=== PATIENT | male | born 1950 | race Caucasian/White ===

== ENCOUNTER 2017-03-20 14:26 | Inpatient (IN) | payer MEDICAID, MEDICARE, OTHER ==
[~2017-03-20] VITALS: Ht 182.9 cm; Wt 111.9 kg
[~2017-03-20 14:26] MED LIST: ASPI-496 PO; FLEC100T PO; HYDR-3138 PO; HYDR25TA6 PO; LISI-468 PO; OMEP-110 PO
[2017-03-20] MEDS ORDERED: SODIUM CHLORIDE FLUSH 10ML SYR IVF ONE (15:30)
[2017-03-20 15:38] LABS: ASPARTATE AMINO TRANSFERASE 18 U/L (15-37); BLOOD UREA NITROGEN 12 mg/dL (7-18)
[2017-03-20 15:44] LABS: IS PT STATUS REG ER OR PRE ER? YES
[2017-03-20 17:20] LABS: IS PT STATUS REG ER OR PRE ER? YES
[2017-03-20] MEDS ORDERED: DOCUSATE 100 MG CAPSULE PO PRN (17:30)
[2017-03-20] MEDS ORDERED: POLYETHYLENE GLYCOL 17 GM PACKET PO PRN (17:30)
[2017-03-20] MEDS ORDERED: ENALAPRILAT 1.25 MG/ML, 2ML IVPush PRN (17:30)
[2017-03-20] MEDS ORDERED: LORazepam 2 MG/ML, 1ML IVPush PRN (17:30)
[2017-03-20] MEDS ORDERED: NITROGLYCERIN 0.4 MG BOTTLE (25 TABS) SL PRN (17:30)
[2017-03-20] MEDS ORDERED: morphine SULFATE 10 MG/ML, 1ML IVPush PRN (17:30)
[2017-03-20] MEDS ORDERED: ONDANSETRON 2MG/ML, 2ML IVPush PRN (17:30)
[2017-03-20] MEDS ORDERED: ACETAMINOPHEN 325 MG TABLET PO PRN (17:30)
[2017-03-20] MEDS ORDERED: LABETALOL 5MG/ML 40ML VIAL IVPush PRN (17:30)
[2017-03-20] MEDS ORDERED: HYDROcodone/APAP 5/325 TABLET PO PRN (17:30)
[2017-03-20 17:35] VITALS: BP 127/81
[2017-03-20] MEDS ORDERED: GABA300C10 PO (17:47)
[2017-03-20] MEDS ORDERED: FLEC150T PO (17:47)
[2017-03-20] MEDS ORDERED: COLC0.6T37 PO (17:47)
[2017-03-20] MEDS ORDERED: FLEC100T PO (17:47)
[2017-03-20] MEDS ORDERED: ALLO300T PO (17:47)
[2017-03-20] MEDS ORDERED: RIVA20TA PO (17:47)
[2017-03-20 18:40] VITALS: BP 133/77
[2017-03-20] MEDS ORDERED: FLECAINIDE 50MG TABLET PO SCH (21:00)
[2017-03-20] MEDS ORDERED: RIVAROXABAN 20 MG TABLET PO SCH (21:30)
[2017-03-21 01:37] VITALS: BP 105/64
[2017-03-21 03:25] LABS: IS PT STATUS REG ER OR PRE ER? NO
[2017-03-21] MEDS ORDERED: RIVAROXABAN 20 MG TABLET PO SCH (06:00)
[2017-03-21 07:49] VITALS: BP 135/86
[2017-03-21] MEDS ORDERED: LISINOPRIL 20 MG TABLET PO SCH (09:00)
[2017-03-21] MEDS ORDERED: FLECAINIDE 100MG TABLET PO SCH (09:00)
[2017-03-21] MEDS ORDERED: HYDROCHLOROTHIAZIDE 25 MG TABLET PO SCH (09:00)
[2017-03-21 10:09] VITALS: BP 124/78
[2017-03-21] MEDS ORDERED: REGADENOSON 0.4 MG/5 ML SYRINGE ONE (13:01)
[2017-03-21 17:03] VITALS: BP 120/78
== END 2017-03-21 17:48 | disposition home or self-care (01) | DRG 313 ==
LOC: ED 15:54 → EDIP 16:27 → 5SO 17:24
PROVIDERS: ADMIT Internal Medicine; ATTEND Internal Medicine
DX: R07.89 Other chest pain (principal); D68.69 Other thrombophilia; F12.90 Cannabis use, unspecified, uncomplicated; I48.0 Paroxysmal atrial fibrillation; E78.5 Hyperlipidemia, unspecified; E66.9 Obesity, unspecified; I11.9 Hypertensive heart disease without heart failure; Z95.0 Presence of cardiac pacemaker; Z90.49 Acquired absence of other specified parts of digestive tract; Z82.49 Family history of ischemic heart disease and other diseases of the circulatory system; Z80.1 Family history of malignant neoplasm of trachea, bronchus and lung; Z91.040 Latex allergy status; Z68.33 Body mass index [BMI] 33.0-33.9, adult
CPT/HCPCS: 36415; 71010; 78452; 80053; 80061; 83735; 83880; 84443; 84484; 85025; 93005; 93017; 93306; 99285; J2785; A9502; C9898

== ENCOUNTER 2017-11-05 10:35 | Emergency (ER) | payer MEDICARE ==
[~2017-11-05] VITALS: Ht 182.9 cm; Wt 104.6 kg
[~2017-11-05 10:35] MED LIST changes: +ALLO300T PO; +COLC0.6T37 PO; +FLEC150T PO; +GABA300C10 PO; -HYDR-3138 PO; +HYDR-3237 PO; +RIVA20TA PO
[2017-11-05] MEDS ORDERED: SILVER NITRATE STICK TP ONE (12:11)
[2017-11-05] MEDS ORDERED: BACITRACIN ZINC OINT 500U/GM, 0.9 GM ONE (12:11)
[2017-11-05 13:03] VITALS: BP 131/72
== END 2017-11-05 13:05 | disposition home or self-care (01) ==
LOC: ED 11:59
DX: R04.0 Epistaxis (principal); I48.91 Unspecified atrial fibrillation; I10 Essential (primary) hypertension; Z79.01 Long term (current) use of anticoagulants
CPT/HCPCS: 30901; 99284

== ENCOUNTER 2017-11-24 12:07 | Emergency (ER) | payer MEDICARE ==
[~2017-11-24] VITALS: Ht 182.9 cm; Wt 106.6 kg
[2017-11-24] MEDS ORDERED: PHENYLEPHRINE NASAL 0.5%, 15ML SPRAY NAS ONE (13:00)
[2017-11-24] MEDS ORDERED: PHENYLEPHRINE NASAL 1%, 15ML SPRAY ONE (13:25)
[2017-11-24] MEDS ORDERED: LIDOCAINE-MPF 2% ,5ML ONE (13:25)
[2017-11-24] MEDS ORDERED: LIDOCAINE 1%, 20ML ONE (13:26)
[2017-11-24] MEDS ORDERED: BACITRACIN ZINC OINT 500U/GM, 0.9 GM ONE (13:26)
[2017-11-24 14:21] VITALS: BP 112/68
== END 2017-11-24 14:23 | disposition home or self-care (01) ==
LOC: ED 14:16
DX: R04.0 Epistaxis (principal); I48.91 Unspecified atrial fibrillation; I10 Essential (primary) hypertension; Z79.01 Long term (current) use of anticoagulants
CPT/HCPCS: 30901; 99284

== ENCOUNTER → 2019-11-27 | Outpatient (CLI) | payer MEDICARE ==
[2019-11-27 14:28] LABS: BASOPHILS # (AUTO) 0.02 x10^3/uL (0-0.1); BASOPHILS % (AUTO) 0 % (0-1); EOSINOPHILS # (AUTO) 0.07 x10^3/uL (0-0.4); EOSINOPHILS % (AUTO) 1 % (1-7); LYMPHOCYTES % (AUTO) 16 % (22-44); MD NO; MEAN CORPUSCULAR HGB CONC 33.9 g/dL (33.2-36.2); MEAN CORPUSCULAR VOLUME 94.5 fL (81-97); MEAN PLATELET VOLUME 8.5 fL (7.4-10.4); MONOCYTES # (AUTO) 0.43 x10^3/uL (0.2-0.8); MONOCYTES % (AUTO) 5 % (2-9); NEUTROPHILS # (AUTO) 6.51 x10^3/uL (1.8-6.8); NEUTROPHILS % (AUTO) 78 % (42-75); PLATELET COUNT 187 x10^3/uL (130-400); RED BLOOD COUNT 5.09 x10^6/uL (4.38-5.82); RED CELL DISTRIBUTION WIDTH 13.8 % (9.4-14.8)
[2019-11-27 14:33] LABS: ALANINE AMINOTRANSFERASE 43 U/L (12-78); ALBUMIN 4.1 g/dL (3.4-5.0); ANION GAP 6 mmol/L (5-15); CALCIUM 8.7 mg/dL (8.5-10.1); CHLORIDE 109 mmol/L (98-107); CREATININE 0.92 mg/dL (0.7-1.3)
[2019-11-27 14:36] LABS: ALKALINE PHOSPHATASE 101 U/L (45-117); BILIRUBIN,TOTAL 0.5 mg/dL (0.2-1.0); TOTAL PROTEIN 7.4 g/dL (6.4-8.2)
[2019-11-27 14:39] LABS: INTERNATIONAL NORMALIZED RATIO 1.1 (0.93-1.1); PROTHROMBIN TIME 11.7 Seconds (9.6-11.5)
== END | disposition home or self-care (01) ==
LOC: STAR 13:21
PROVIDERS: ATTEND Orthopaedic Surgery
DX: Z01.818 Encounter for other preprocedural examination (principal); M16.11 Unilateral primary osteoarthritis, right hip; Z79.899 Other long term (current) drug therapy
CPT/HCPCS: 36415; 80053; 83036; 85025; 85610; 85730; 87081; 87806; 93005; G0475

== ENCOUNTER 2019-12-04 08:10 | Day surgery (SDC) | payer MEDICARE ==
[~2019-12-04] VITALS: Ht 182.9 cm; Wt 108.9 kg
[~2019-12-04 08:10] MED LIST changes: +EPINEPHRINE 1 MG/ML, 1ML ONE; +KETOROLAC 60 MG/2 ML ONE; +ROPIvacaine/PF 0.2%, 20 ML ONE; +SODIUM CHLORIDE 0.9% 50 ML ONE; +VANCOMYCIN 1,000 MG ONE
[2019-12-04] MEDS ORDERED: LACTATED RINGERS 1,000 ML IV SCH (09:27)
[2019-12-04] MEDS ORDERED: GABAPENTIN 300 MG CAPSULE PO ONE (09:30)
[2019-12-04] MEDS ORDERED: ACETAMINOPHEN 500 MG TABLET PO ONE (09:30)
[2019-12-04] MEDS ORDERED: TRANEXAMIC ACID 100 MG/ML, 10ML ONE (10:23)
[2019-12-04] MEDS ORDERED: FENTANYL PF 250 MCG/5ML ONE (10:27)
[2019-12-04] MEDS ORDERED: MIDAZOLAM 1 MG/ML, 2ML ONE (10:29)
[2019-12-04] MEDS ORDERED: ACETAMINOPHEN 650 MG/20.3 ML UDC PO PRN (10:30)
[2019-12-04] MEDS ORDERED: OXYcodone 5 MG/5 ML ORAL.SOL UDC PO PRN (10:30)
[2019-12-04] MEDS ORDERED: POLYETHYLENE GLYCOL 17 GM PACKET PO PRN (10:30)
[2019-12-04] MEDS ORDERED: TRANEXAMIC ACID 1,000 MG in SODIUM CHLORIDE 0.9% 100 ML IVPB ONE (10:30)
[2019-12-04] MEDS ORDERED: DIPHENHYDRAMINE 50 MG/ML, 1ML IVPush PRN (10:30)
[2019-12-04] MEDS ORDERED: PROMETHAZINE 25 MG/ML, 1ML IV PRN (10:30)
[2019-12-04] MEDS ORDERED: ONDANSETRON ODT 8 MG PO PRN (10:30)
[2019-12-04] MEDS ORDERED: HYDROmorphone 1 MG/ML, 1ML INJ IVPush PRN (10:30)
[2019-12-04] MEDS ORDERED: MAGNESIUM HYDROXIDE 8%, 30ML UDC PO PRN (10:30)
[2019-12-04] MEDS ORDERED: SENNA/DOCUSATE TABLET PO PRN (10:30)
[2019-12-04] MEDS ORDERED: PROMETHAZINE 25 MG/ML, 1ML IM PRN (10:30)
[2019-12-04] MEDS ORDERED: DIPHENHYDRAMINE 25 MG CAPSULE PO PRN (10:30)
[2019-12-04] MEDS ORDERED: LORazepam 2 MG/ML, 1ML IVPush PRN (10:30)
[2019-12-04] MEDS ORDERED: FENTANYL PF 100 MCG/2ML IV PRN (10:30)
[2019-12-04] MEDS ORDERED: ONDANSETRON 4 MG TABLET PO PRN (10:30)
[2019-12-04] MEDS ORDERED: ONDANSETRON 2MG/ML, 2ML IVPush PRN (10:30)
[2019-12-04] MEDS ORDERED: SCOPOLAMINE PATCH, 1.5MG PATCH.TD72 TD SCH (10:30)
[2019-12-04] MEDS: ACETAMINOPHEN 325 MG TABLET PO SCH ×4 (10:30→22:14)
[2019-12-04] MEDS ORDERED: hydrALAzine 20 MG/ML, 1ML IV PRN (10:30)
[2019-12-04] MEDS ORDERED: ALUMINUM/MAG/SIMETHICONE 30 ML UDC PO PRN (10:30)
[2019-12-04] MEDS ORDERED: PROMETHAZINE 25 MG SUPP PR PRN (10:30)
[2019-12-04] MEDS ORDERED: ONDANSETRON 2MG/ML, 2ML IV PRN (10:30)
[2019-12-04] MEDS ORDERED: CEFAZOLIN PMX 1GM/50ML 50 ML IVPB SCH (10:30)
[2019-12-04] MEDS ORDERED: LABETALOL 5MG/ML, 20ML IV PRN (10:30)
[2019-12-04] MEDS ORDERED: PSYLLIUM PACKET PO PRN (10:30)
[2019-12-04] MEDS ORDERED: OXYcodone IR 5MG TABLET PO PRN (10:30)
[2019-12-04] MEDS ORDERED: LIDOCAINE 2% 100MG/5ML SYRINGE ONE (10:40)
[2019-12-04] MEDS ORDERED: GLYCOPYRROLATE 0.2MG/1ML, 5ML ONE (11:30)
[2019-12-04] MEDS ORDERED: NEOSTIGMINE 1 MG/ML, 10ML ONE (11:30)
[2019-12-04] MEDS ORDERED: ROCURONIUM 10MG/ML,5ML ONE (11:30)
[2019-12-04] MEDS ORDERED: DEXAMETHASONE 4 MG/ML, 1ML ONE (11:30)
[2019-12-04] MEDS ORDERED: PROPOFOL 10 MG/ML, 20ML ONE (11:30)
[2019-12-04] MEDS ORDERED: ONDANSETRON 2MG/ML, 2ML ONE (11:30)
[2019-12-04] MEDS ORDERED: SUCCINYLCHOLINE 20 MG/ML, 10ML ONE (11:30)
[2019-12-04] MEDS ORDERED: CEFAZOLIN 1,000 MG ONE (11:30)
[2019-12-04] MEDS ORDERED: FENTANYL PF 100 MCG/2ML ONE (11:31)
[2019-12-04] MEDS ORDERED: HYDROmorphone 1 MG/ML, 1ML INJ ONE ×2 (12:28→12:59)
[2019-12-04] MEDS ORDERED: OXYcodone 5 MG/5 ML ORAL.SOL UDC ONE (12:29)
[2019-12-04] MEDS: HYDROmorphone 2 MG/ML, 1ML IVPush PRN ×3 (12:30→13:10)
[2019-12-04] MEDS ORDERED: ROPIvacaine/PF 0.2%, 20 ML ONE (13:52)
[2019-12-04 14:00] VITALS: BP 110/67
[2019-12-04] MEDS: KETOROLAC 30 MG/1 ML IV SCH ×2 (14:30→22:14)
[2019-12-04] MEDS ORDERED: TAMSULOSIN 0.4 MG CAP.ER.24H ONE (16:14)
[2019-12-04] MEDS: TAMSULOSIN 0.4 MG CAP.ER.24H PO SCH (16:16)
[2019-12-04] MEDS: CEFAZOLIN PMX 1GM/50ML 50 ML IVPB SCH (18:13)
[2019-12-04 18:50] VITALS: BP 95/60
[2019-12-04] MEDS ORDERED: RIVAROXABAN 20 MG TABLET ONE (20:12)
[2019-12-04] MEDS: DOCUSATE 100 MG CAPSULE PO SCH (20:25)
[2019-12-04] MEDS ORDERED: FLECAINIDE 50MG TABLET PO SCH (21:00)
[2019-12-04] MEDS: POTASSIUM CHLORIDE 20 MEQ in D5%-0.45% NACL 1,000 ML IV SCH (22:14)
[2019-12-05 00:02] VITALS: BP 99/56
[2019-12-05] MEDS: ACETAMINOPHEN 325 MG TABLET PO SCH ×3 (02:46→11:30)
[2019-12-05] MEDS: CEFAZOLIN PMX 1GM/50ML 50 ML IVPB SCH (02:46)
[2019-12-05 04:17] VITALS: BP 96/59
[2019-12-05] MEDS ORDERED: DEXAMETHASONE 4 MG/ML, 1ML IVPush SCH (06:00)
[2019-12-05] MEDS ORDERED: OMEPRAZOLE 20 MG CAPSULE.DR PO SCH (06:00)
[2019-12-05 07:10] VITALS: BP 100/60
[2019-12-05] MEDS: KETOROLAC 30 MG/1 ML IV SCH (07:22)
[2019-12-05] MEDS ORDERED: RIVAROXABAN 20 MG TABLET PO SCH (08:00)
[2019-12-05] MEDS: POTASSIUM CHLORIDE 20 MEQ in D5%-0.45% NACL 1,000 ML IV SCH (08:00)
[2019-12-05] MEDS: TAMSULOSIN 0.4 MG CAP.ER.24H PO SCH (08:19)
[2019-12-05] MEDS: LISINOPRIL 40 MG TABLET PO SCH ×2 (08:19→08:22)
[2019-12-05] MEDS: DOCUSATE 100 MG CAPSULE PO SCH (08:20)
[2019-12-05] MEDS ORDERED: HYDROCHLOROTHIAZIDE 25 MG TABLET PO SCH (09:00)
[2019-12-05] MEDS ORDERED: FLECAINIDE 100MG TABLET PO SCH (09:00)
[2019-12-05] MEDS ORDERED: GABAPENTIN 300 MG CAPSULE PO SCH (09:00)
[2019-12-05 13:07] VITALS: BP 94/54
== END 2019-12-05 15:05 | disposition home or self-care (01) ==
LOC: OUT 08:10 → ORIP 10:15 → UNDOADMOB 10:15 → 4NE 14:00 → ORIP 14:00 → 4NE 12-05 14:56 → DCLOUNGE 12-05 14:56 → OUT 12-05 15:05 → UNDODISOB 12-05 15:05
PROVIDERS: ATTEND Orthopaedic Surgery
DX: M16.11 Unilateral primary osteoarthritis, right hip (principal); I10 Essential (primary) hypertension; I48.91 Unspecified atrial fibrillation; F12.90 Cannabis use, unspecified, uncomplicated; Z68.31 Body mass index [BMI] 31.0-31.9, adult; Z79.01 Long term (current) use of anticoagulants; Z91.040 Latex allergy status; Z79.899 Other long term (current) drug therapy
CPT/HCPCS: 27130; 36415; 72170; 85014; 85018; 86850; 86900; 96365; 96366; 96375; 96376; 97110; 97116; 97161; 97530; C1713; C1776; G0378; J0171; J0690; J1100; J1170; J1885; J2250; J2405; J2704; J2710; J2795; J3010; J3480; J7120; J3370; J0330

== ENCOUNTER → 2020-04-19 | Outpatient (CLI) | payer MEDICARE ==
[~2020-04-19] MED LIST changes: -EPINEPHRINE 1 MG/ML, 1ML ONE; -KETOROLAC 60 MG/2 ML ONE; -ROPIvacaine/PF 0.2%, 20 ML ONE; +SINCALIDE (KINEVAC) 5 MCG ONE; -SODIUM CHLORIDE 0.9% 50 ML ONE; -VANCOMYCIN 1,000 MG ONE
== END | disposition home or self-care (01) ==
LOC: PETCFH 08:48
PROVIDERS: ATTEND Family Medicine
DX: R10.9 Unspecified abdominal pain (principal)
CPT/HCPCS: 78227; A9537; J2805

== ENCOUNTER → 2020-05-30 | Outpatient (CLI) | payer MEDICARE ==
[~2020-05-30] MED LIST changes: -SINCALIDE (KINEVAC) 5 MCG ONE; +VITA1TAB19 PO; +milk thistle PO
== END | disposition home or self-care (01) ==
LOC: STAR 08:26
PROVIDERS: ATTEND Surgery
DX: Z01.818 Encounter for other preprocedural examination (principal); K80.20 Calculus of gallbladder without cholecystitis without obstruction
CPT/HCPCS: 93005

== ENCOUNTER 2020-06-07 06:16 | Day surgery (SDC) | payer MEDICARE ==
[~2020-06-07] VITALS: Ht 182.9 cm; Wt 95.4 kg
[2020-06-07] MEDS ORDERED: LACTATED RINGERS 1,000 ML IV SCH (06:17)
[2020-06-07] MEDS ORDERED: CHLORHEXIDINE 15 ML UDC MM ONE (06:30)
[2020-06-07 06:39] VITALS: BP 122/78
[2020-06-07] MEDS ORDERED: BUPIVACAINE/PF-EPI 0.25% 1:200K ONE (06:56)
[2020-06-07] MEDS ORDERED: FENTANYL PF 250 MCG/5ML ONE (07:27)
[2020-06-07] MEDS ORDERED: FENTANYL PF 100 MCG/2ML ONE (08:17)
[2020-06-07] MEDS: FENTANYL PF 100 MCG/2ML IV PRN ×2 (08:18→08:25)
[2020-06-07] MEDS ORDERED: PROPOFOL 10 MG/ML, 20ML ONE (08:19)
[2020-06-07] MEDS ORDERED: ROCURONIUM 10MG/ML,5ML ONE (08:19)
[2020-06-07] MEDS ORDERED: GLYCOPYRROLATE 0.2MG/1ML, 5ML ONE (08:19)
[2020-06-07] MEDS ORDERED: NEOSTIGMINE 1 MG/ML, 10ML ONE (08:19)
[2020-06-07] MEDS ORDERED: CEFAZOLIN 1,000 MG ONE (08:19)
[2020-06-07] MEDS ORDERED: DEXAMETHASONE 4 MG/ML, 1ML ONE (08:19)
[2020-06-07] MEDS ORDERED: SUCCINYLCHOLINE 20 MG/ML, 10ML ONE (08:19)
[2020-06-07] MEDS ORDERED: ONDANSETRON 2MG/ML, 2ML ONE (08:19)
[2020-06-07] MEDS ORDERED: SUGAMMADEX 200 MG/2 ML IVPush ONE (08:27)
[2020-06-07] MEDS ORDERED: KETOROLAC 30 MG/1 ML ONE (08:27)
[2020-06-07] MEDS ORDERED: ALBUTEROL SULFATE 2.5 MG/3 ML NPPB PRN (08:30)
[2020-06-07] MEDS ORDERED: MEPERIDINE/PF 25MG/0.5ML IVPush PRN (08:30)
[2020-06-07] MEDS ORDERED: LABETALOL 5MG/ML, 20ML IV PRN (08:30)
[2020-06-07] MEDS ORDERED: PROMETHAZINE 25 MG/ML, 1ML IV PRN (08:30)
[2020-06-07] MEDS ORDERED: ACETAMINOPHEN 325 MG TABLET PO PRN (08:30)
[2020-06-07] MEDS ORDERED: OXYcodone 5 MG/5 ML ORAL.SOL UDC PO PRN (08:30)
[2020-06-07] MEDS ORDERED: DIAZEPAM 5 MG/ML, 2ML IVPush PRN (08:30)
[2020-06-07] MEDS ORDERED: hydrALAzine 20 MG/ML, 1ML IV PRN (08:30)
[2020-06-07] MEDS ORDERED: HYDROmorphone 2 MG/ML, 1ML IVPush PRN (08:30)
[2020-06-07] MEDS ORDERED: OXYcodone 5 MG/5 ML ORAL.SOL UDC ONE (08:31)
[2020-06-07] MEDS ORDERED: ACETAMINOPHEN 650 MG/20.3 ML UDC ONE (08:31)
== END 2020-06-07 10:50 | disposition home or self-care (01) ==
LOC: OUT 06:16
PROVIDERS: ATTEND Surgery
DX: K82.8 Other specified diseases of gallbladder (principal); Z11.59 Encounter for screening for other viral diseases; K81.1 Chronic cholecystitis; I10 Essential (primary) hypertension; I48.91 Unspecified atrial fibrillation; M10.9 Gout, unspecified; Z79.01 Long term (current) use of anticoagulants; Z79.899 Other long term (current) drug therapy; Z91.040 Latex allergy status; Z95.0 Presence of cardiac pacemaker
CPT/HCPCS: 47562; 87635; 88304; J0690; J1100; J1885; J2405; J2704; J3010; J7120; 36415; J2710; J0330

== ENCOUNTER → 2020-10-02 | Outpatient (CLI) | payer MEDICARE ==
[~2020-10-02] MED LIST changes: +COLC0.6C3 PO
== END | disposition home or self-care (01) ==
LOC: CFH 12:00
PROVIDERS: ATTEND Internal Medicine Cardiovascular Disease
DX: R05 Cough (principal); E78.2 Mixed hyperlipidemia; I48.0 Paroxysmal atrial fibrillation; G47.30 Sleep apnea, unspecified; I11.9 Hypertensive heart disease without heart failure; Z95.0 Presence of cardiac pacemaker
CPT/HCPCS: 71046

== ENCOUNTER 2021-06-25 18:10 | Emergency (ER) | payer MEDICARE ==
[~2021-06-25] VITALS: Ht 182.9 cm; Wt 103.9 kg
[2021-06-25 18:25] VITALS: BP 141/74
--- NOTE | 2021-06-25 19:53 | NUR ---
FIRST CONTACT WITH [facility]: PROVIDER IN ROOM, PATIENT SITTING COMFORTABLY ON ANGELA MURCIA AT THIS TIME.
--- NOTE | 2021-06-25 20:29 | NUR ---
PATIENT SITTING ON GURNEY, NO COMPLAINTS OF PAIN. PATIENT STATES HE CAME INTO TODAY BECAUSE HE HAS A "SHINY, BLACK SPOT" IN THE LOWER PORTION OF HIS RIGHT EYE. PATIENT STATES "IT'S VANI STRANGE, BUT IT DOESN'T HURT".
--- NOTE | 2021-06-25 21:45 | NUR ---
PATIENT SITTING ON GURNEY, NAD AT THIS TIME, DENIES ANY NEEDS.
--- NOTE | 2021-06-25 22:37 | NUR ---
Patient given discharge instructions and they have confirmed that they understand the instructions. Patient ambulatory with steady gait. NAD, all questions answered appropriately, denies additional needs at this time. No personal belongings left in room after discharge.
== END 2021-06-25 22:39 | disposition home or self-care (01) ==
LOC: ED 21:22
DX: H57.89 Other specified disorders of eye and adnexa (principal); I10 Essential (primary) hypertension; I48.91 Unspecified atrial fibrillation; F17.200 Nicotine dependence, unspecified, uncomplicated
CPT/HCPCS: 70450; 99284